=== PATIENT | female | born 1990 | race Caucasian/White ===

== ENCOUNTER 2017-01-16 11:41 | Emergency (ER) | payer OTHER ==
[2017-01-16 12:41] VITALS: BP 134/72; PULSE 89; RESP 18; TEMP 97; O2SAT 99
== END 2017-01-16 13:09 | disposition home or self-care (01) | DRG 153 ==
LOC: ED 11:41
DX: J03.91 Acute recurrent tonsillitis, unspecified (principal)
CPT/HCPCS: 87430; 99282

== ENCOUNTER 2017-01-17 13:46 | Emergency (ER) | payer OTHER ==
[2017-01-17 15:07] VITALS: TEMP 98.3; O2SAT 97
[2017-01-17 15:27] VITALS: BP 114/76; PULSE 83; RESP 18
== END 2017-01-17 15:26 | disposition home or self-care (01) | DRG 153 ==
LOC: ED 13:46
DX: J03.90 Acute tonsillitis, unspecified (principal)
CPT/HCPCS: 87430; 99282; 99283

== ENCOUNTER 2017-06-13 08:16 | Day surgery (SDC) | payer OTHER ==
[~2017-06-13 08:16] MED LIST: ROCURONIUM BROMIDE 10 MG/ML SOL IV ONE
[2017-06-13] MEDS ORDERED: ONDANSETRON HCL 4 MG/2 ML SOL ONE (08:20)
[2017-06-13] MEDS ORDERED: PROPOFOL 10 MG/ML EMU IV ONE (08:20)
[2017-06-13] MEDS ORDERED: DEXAMETHASONE 20 MG/5 ML (4 MG/ML SOL) ONE (08:20)
[2017-06-13] MEDS ORDERED: FENTANYL 100MCG/2ML SOL ONE ×2 (08:21→09:46)
[2017-06-13] MEDS ORDERED: MIDAZOLAM 2 MG/2 ML SOL ONE (08:21)
[2017-06-13] MEDS: BUPIVACAINE/EPI 0.25% 50 ML SOL ONE ×2 (09:36→09:53)
[2017-06-13] MEDS ORDERED: HYDROMORPHONE 1 MG/ML SYRINGE ONE (10:13)
[2017-06-13 12:31] VITALS: BP 113/79; PULSE 71; RESP 16; TEMP 97.5; O2SAT 96
== END 2017-06-13 13:10 | disposition home or self-care (01) | DRG 153 ==
LOC: SURG 08:16
PROVIDERS: ATTEND Otolaryngology
DX: J35.01 Chronic tonsillitis (principal); J35.8 Other chronic diseases of tonsils and adenoids
CPT/HCPCS: J1100; J2250; J2405; J3010; J1170; J2704